=== PATIENT | female | born 1985 | race Caucasian/White ===

== ENCOUNTER 2021-01-02 10:13 | Inpatient (IN) ==
[2021-01-02 10:51] LABS: Urine Appearance Clear; Urine Bilirubin Negative (Negative); Urine Blood Negative (Negative); Urine Color Colorless; Urine Glucose Negative (Negative); Urine Ketones Negative (Negative); Urine Nitrite Negative (Negative); Urine Protein Negative (Negative); Urine Specific Gravity 1.001 (1.002-1.030); Urine Urobilinogen Negative (Negative)
[2021-01-02 11:33] LABS: Urine Benzodiazepine Screen Presumptive Positive (None Detect); Urine Cannabinoids Screen None Detected (None Detect); Urine Opiates Screen None Detected (None Detect)
[2021-01-02 11:37] LABS: ABS Lymphocytes 1.9 10^3/ul (1.0-4.8); ABS Monocytes 0.3 10^3/ul (0-0.8); Eosinophil % 0.8 %; Hematocrit 40 % (35-47); Hemoglobin 13.7 g/dL (12.0-16.0); Lymphocyte % 36.5 %; Mean Corpuscular HGB Conc 35 g/dL (31-36); Mean Corpuscular Hemoglobin 32 pg (27-31); Mean Corpuscular Volume 92 fL (80-97); Mean Platelet Volume 7.5 fL (7.4-10.4); Platelet Count 262 10^3/uL (150-450); Red Blood Count 4.31 10^6 /uL (3.70-4.87); Red Cell Distribution Width 13 % (10-15); White Blood Count 5.3 10^3/uL (3.5-10.8)
[2021-01-02 12:01] LABS: HCG Pregnancy < 0.60 mIU/mL
[2021-01-02 12:13] LABS: Albumin 4.5 g/dL (3.2-5.2); Anion Gap 4 mmol/L (2-11); CO2 Carbon Dioxide 28 mmol/L (22-32); Calcium 9.5 mg/dL (8.6-10.3); Chloride 107 mmol/L (101-111); Sodium 139 mmol/L (135-145)
[2021-01-02 12:18] LABS: ALT 11 U/L (7-52); AST 15 U/L (13-39); Alkaline Phosphatase 60 U/L (35-149); Blood Urea Nitrogen 6 mg/dL (6-24); EGFR African American 112.7 (>60); EGFR Non-African American 93.1 (>60); Globulin 2.3 g/dL (2-4); Glucose 91 mg/dL (70-100); Total Protein 6.8 g/dL (6.4-8.9)
[2021-01-02 12:20] LABS: Alcohol, S < 10 mg/dL (<10); Lithium 0.46 mmol/L (0.6-1.2); Salicylate < 2.50 mg/dL (<30)
[2021-01-02 12:22] LABS: TSH Ultra Thyroid Stim Horm 1.35 mcIU/mL (0.34-5.60)
[2021-01-02 12:23] LABS: Acetaminophen < 15 mcg/mL
[2021-01-02] MEDS ORDERED: Al Hydrox/Mg Hydrox/Simet LIQ 30 ML UDC PO PRN (13:10)
[2021-01-02] MEDS ORDERED: ARIPIPRAZOLE 5 MG PO SCH (21:00)
[2021-01-02] MEDS: Lithium Carbonate ER 450mg TAB PO SCH (21:26)
[2021-01-03] MEDS: Lithium Carbonate ER 450mg TAB PO SCH (10:52)
[2021-01-03 13:03] LABS: Free T4 0.73 ng/dL (0.61-1.12)
[2021-01-04 07:32] LABS: % Iron Saturation 10 % (15-55); Iron 40 ug/dL (50-212); Total Iron Binding Capacity 400 mcg/dL (250-450); Transferrin 286 mg/dL (203-362); Unsaturated Iron Binding < 385 ug/dL
[2021-01-04 08:26] VITALS: BP 107/68
== END 2021-01-04 13:35 | disposition home or self-care (01) ==
LOC: ED 10:13 → BSU 13:10 → ED 14:34
PROVIDERS: ADMIT Psychiatry & Neurology Psychiatry; ATTEND Psychiatry & Neurology Psychiatry

== ENCOUNTER 2021-07-03 12:02 | Inpatient (IN) ==
[2021-07-03 12:55] LABS: Urine Appearance Cloudy; Urine Bilirubin Negative (Negative); Urine Blood Negative (Negative); Urine Color Yellow; Urine Glucose Negative (Negative); Urine Ketones Negative (Negative); Urine Nitrite Negative (Negative); Urine Protein Negative (Negative); Urine Specific Gravity 1.012 (1.002-1.030); Urine Urobilinogen Negative (Negative)
[2021-07-03 12:56] LABS: Urine Bacteria Absent (Absent); Urine Red Blood Cell Absent (Absent); Urine Squamous Epithelial Cell Present (Absent); Urine White Blood Cell Trace(0-5/hpf) (Absent)
[2021-07-03 13:11] LABS: Urine Benzodiazepine Screen Presumptive Positive (None Detect); Urine Cannabinoids Screen None Detected (None Detect); Urine Opiates Screen None Detected (None Detect)
[2021-07-03 13:18] LABS: ABS Eosinophils 0.1 10^3/ul (0-0.6); ABS Lymphocytes 2.1 10^3/ul (1.0-4.8); ABS Monocytes 0.4 10^3/ul (0-0.8); ABS Neutrophils 4.4 10^3/ul (1.5-7.7); Eosinophil % 1.2 %; Hematocrit 40 % (35-47); Lymphocyte % 29.7 %; Mean Corpuscular HGB Conc 35 g/dL (31-36); Mean Corpuscular Hemoglobin 33 pg (27-31); Mean Corpuscular Volume 94 fL (80-97); Mean Platelet Volume 7.3 fL (7.4-10.4); Platelet Count 279 10^3/uL (150-450); Red Blood Count 4.24 10^6 /uL (3.70-4.87); Red Cell Distribution Width 12 % (10-15)
[2021-07-03 13:34] LABS: ALT 13 U/L (7-52); AST 14 U/L (13-39); Albumin 4.5 g/dL (3.2-5.2); Albumin/Globulin Ratio 1.9 (1-3); Alkaline Phosphatase 57 U/L (35-149); Anion Gap 5 mmol/L (2-11); Blood Urea Nitrogen 12 mg/dL (6-24); CO2 Carbon Dioxide 26 mmol/L (22-32); Calcium 9.6 mg/dL (8.6-10.3); Chloride 107 mmol/L (101-111); Globulin 2.4 g/dL (2-4); Glucose 87 mg/dL (70-100); Potassium 3.9 mmol/L (3.5-5.0); Sodium 138 mmol/L (135-145); Total Protein 6.9 g/dL (6.4-8.9); eGFR CKD-EPI 97.3 (>60)
[2021-07-03 13:55] LABS: Acetaminophen < 15 mcg/mL; Alcohol, S < 13 mg/dL (<13); Lithium 0.55 mmol/L (0.6-1.2); Salicylate < 2.50 mg/dL (<30)
[2021-07-03] MEDS ORDERED: Al Hydrox/Mg Hydrox/Simet LIQ 30 ML UDC PO PRN (21:23)
[2021-07-04] MEDS: Vitamin THERAPEUTIC TAB PO SCH (08:52)
[2021-07-04] MEDS ORDERED: Flu vaccine *QUAD* 2021-22* 0.5 ML SYRINGE IM ONE (09:00)
[2021-07-04] MEDS ORDERED: Lithium Carbonate ER 450mg TAB PO SCH ×2 (21:00)
[2021-07-05 07:49] VITALS: BP 111/77
[2021-07-05] MEDS: Vitamin THERAPEUTIC TAB PO SCH (08:47)
== END 2021-07-05 12:27 | disposition home or self-care (01) | DRG 885 ==
LOC: ED 12:02 → BSU 18:43
PROVIDERS: ADMIT Psychiatry & Neurology Psychiatry; ATTEND Psychiatry & Neurology Psychiatry